=== PATIENT | female | born 1995 | race Two or more races ===

== ENCOUNTER 2022-02-17 06:22 | Emergency (ER) | payer OTHER ==
[~2022-02-17] VITALS: Ht 154.9 cm; Wt 72.6 kg
[2022-02-17] MEDS ORDERED: LEXAPRO5 MG PO (06:35)
== END 2022-02-17 11:38 | disposition home or self-care (01) ==
LOC: ER 06:22
DX: R05.9 Cough, unspecified (principal); R50.9 Fever, unspecified; Z20.822 Contact with and (suspected) exposure to COVID-19

== ENCOUNTER 2023-02-18 08:56 | Emergency (ER) | payer OTHER ==
[~2023-02-18] VITALS: Ht 154.9 cm; Wt 68.0 kg
[~2023-02-18 08:56] MED LIST: LEXAPRO5 MG PO
[2023-02-18 09:39] LABS: HEMATOCRIT 41.8 % (36.0-45.00); HEMOGLOBIN 13.5 g/dL (12.0-15.00); MEAN CELL VOLUME 84.2 fL (80.00-100.00); MEAN CORPUSCULAR HEMOGLOBIN 27.2 pg (27.00-32.0); MEAN CORPUSCULAR HGB CONC 32.3 g/dl (32.0-36.0); PLATELET COUNT 230 K/uL (150-450); RED BLOOD COUNT 4.96 M/uL (4.00-6.00); RED CELL DISTRIBUTION WIDTH 13.3 % (11.5-14.5)
== END 2023-02-18 12:05 | disposition home or self-care (01) ==
LOC: ER 08:56
PROVIDERS: General Practice
DX: R05.9 Cough, unspecified (principal); Z20.822 Contact with and (suspected) exposure to COVID-19

== ENCOUNTER 2023-03-18 06:51 | Emergency (ER) | payer OTHER ==
[~2023-03-18] VITALS: Ht 154.9 cm; Wt 72.6 kg
[2023-03-18] MEDS ORDERED: PLAQUENIL (08:17)
[2023-03-18 09:07] LABS: HEMATOCRIT 38.8 % (36.0-45.00); HEMOGLOBIN 12.9 g/dL (12.0-15.00); MEAN CELL VOLUME 83.7 fL (80.00-100.00); MEAN CORPUSCULAR HEMOGLOBIN 27.8 pg (27.00-32.0); MEAN CORPUSCULAR HGB CONC 33.2 g/dl (32.0-36.0); PLATELET COUNT 209 K/uL (150-450); RED BLOOD COUNT 4.64 M/uL (4.00-6.00); RED CELL DISTRIBUTION WIDTH 13.6 % (11.5-14.5)
[2023-03-18 09:47] LABS: URINE APPEARANCE Clear; URINE BILIRRUBIN Negative (NEGATIVE); URINE BLOOD Negative; URINE COLOR Yellow; URINE GLUCOSE Negative (NEGATIVE); URINE LEUKOCYTE Negative; URINE NITRATE Negative; URINE PROTEIN Trace (NEGATIVE)
[2023-03-18 09:50] LABS: URINE EPITHELIAL CELLS 40.3 uL (0.0-38.8); URINE WBC 8.4 uL (0.0-23.2)
[2023-03-18 09:52] LABS: CALCIUM 9.2 mg/dL (8.5-10.1); CREATININE SERUM 0.66 mg/dL (0.55-1.02); GFR 109.12; POTASSIUM 3.99 mEq/L (3.5-5.1)
== END 2023-03-18 12:48 | disposition home or self-care (01) ==
LOC: ER 06:51
PROVIDERS: General Practice
DX: K52.89 Other specified noninfective gastroenteritis and colitis (principal); R11.10 Vomiting, unspecified; Z20.822 Contact with and (suspected) exposure to COVID-19

== ENCOUNTER 2023-03-21 11:33 | Emergency (ER) | payer OTHER ==
[~2023-03-21] VITALS: Ht 154.9 cm; Wt 72.6 kg
[~2023-03-21 11:33] MED LIST changes: +PLAQUENIL
[2023-03-21] MEDS ORDERED: CIPRO500 MG PO (12:39)
[2023-03-21] MEDS ORDERED: PEPCID AC20 MG PO (12:40)
== END 2023-03-21 12:51 | disposition home or self-care (01) ==
LOC: ER 11:34
DX: S61.451A Open bite of right hand, initial encounter (principal); W54.0XXA Bitten by dog, initial encounter; Y93.89 Activity, other specified; Y92.098 Other place in other non-institutional residence as the place of occurrence of the external cause; Y99.8 Other external cause status

== ENCOUNTER 2024-03-03 11:37 | Emergency (ER) | payer OTHER ==
[~2024-03-03] VITALS: Ht 154.9 cm; Wt 77.6 kg
[~2024-03-03 11:37] MED LIST changes: +CIPRO500 MG PO; +PEPCID AC20 MG PO
[2024-03-03] MEDS ORDERED: GUAIFENESIN/DEXTROMETHORPHAN 10ML BLIST.PACK PO ONE (14:45)
[2024-03-03 16:31] LABS: HEMATOCRIT 37.3 % (36.0-45.00); HEMOGLOBIN 11.9 g/dL (12.0-15.00); MEAN CELL VOLUME 80.5 fL (80.00-100.00); MEAN CORPUSCULAR HEMOGLOBIN 25.7 pg (27.00-32.0); MEAN CORPUSCULAR HGB CONC 31.9 g/dl (32.0-36.0); PLATELET COUNT 273 K/uL (150-450); RED BLOOD COUNT 4.64 M/uL (4.00-6.00); RED CELL DISTRIBUTION WIDTH 15.1 % (11.5-14.5)
[2024-03-03 16:49] LABS: PARTIAL THROMBOPLASTIN TIME 24.8 SECONDS (22.0-34.0); PROTHROMBIN TIME 10.9 SECONDS (9.0-11.5)
[2024-03-03 16:53] LABS: ALBUMIN 4.4 gm/dL (3.4-5.0); BILIRUBIN TOTAL 0.31 mg/dL (0.3-1.2); CALCIUM 9.2 mg/dL (8.5-10.1); CREATININE SERUM 0.63 mg/dL (0.55-1.02); GFR 114.23; GLOBULINA 3.9 G/DL (2.4-3.5); POTASSIUM 3.93 mEq/L (3.5-5.1); TOTAL PROTEIN 8.3 gm/dL (6.4-8.2)
[2024-03-03] MEDS ORDERED: OSELTAMIVIR PHOSPHATE 75 MG CAPSULE PO ONE (17:00)
[2024-03-03] MEDS ORDERED: QC TUSSIN DM L118 ML PO (18:57)
[2024-03-03] MEDS ORDERED: OSEL75CA PO (18:57)
== END 2024-03-03 19:27 ==
LOC: ER 11:39
PROVIDERS: Nurse Practitioner Family
DX: J10.1 Influenza due to other identified influenza virus with other respiratory manifestations (principal); S60.022A Contusion of left index finger without damage to nail, initial encounter; R07.89 Other chest pain; M32.8 Other forms of systemic lupus erythematosus; R05.8 Other specified cough; Z20.822 Contact with and (suspected) exposure to COVID-19